=== PATIENT | male | born 1975 | race Caucasian/White ===

== ENCOUNTER 2021-12-19 09:01 | Outpatient (CLI) | payer BC, SELFPAY ==
[2021-12-19 13:42] LABS: Chloride* 107 mmol/L (96-114)
[2021-12-19 13:43] LABS: Potassium* 4.4 mmol/L (3.6-5.1); Sodium* 139 mmol/L (135-149)
[2021-12-19 13:46] LABS: Blood Urea Nitrogen* 24 mg/dL (5-24); Calcium* 9.3 mg/dL (8.4-10.6); Carbon Dioxide* 25 mmol/L (20-32); Cholesterol* 197 mg/dL (90-199); Creatinine* 1.1 mg/dL (0.5-1.5); Estimated Glomerular Filt Rate 84 ml/min; Glucose* 106 mg/dL (60-115); Triglycerides* 215 mg/dL (40-149)
[2021-12-19 13:47] LABS: HDL Cholesterol* 48 mg/dL (>=40); LDL Cholesterol Calculated 106 mg/dL (<100)
[2021-12-19 13:55] LABS: Vitamin D 25 Hydroxy* 49 ng/mL (30-80)
[2021-12-19 14:17] LABS: PSA Screen* 1.15 ng/mL (0.10-4.00)
== END 2021-12-19 09:02 | disposition home or self-care (01) ==
LOC: LKVLAB 09:01
PROVIDERS: PCP Emergency Medicine; Visit Provider Emergency Medicine
DX: Z00.00 Encounter for general adult medical examination without abnormal findings (principal); E55.9 Vitamin D deficiency, unspecified; E78.5 Hyperlipidemia, unspecified; I10 Essential (primary) hypertension; Z80.42 Family history of malignant neoplasm of prostate
CPT/HCPCS: 36415; 80048; 80061; 82306; 84153

== ENCOUNTER 2021-12-29 12:49 | Outpatient (CLI) | payer BC, SELFPAY ==
--- NOTE | 2021-12-29 13:00 | MR_ITS ---
[facility] [address] [facility] [address] Phone:?[phone] Fax:?[phone] Referring Physician Information: Charlotte Buckley M.D. [address] [place] [id number] Phone:?[phone] Fax:?[phone] Patient:?Marcus Jansen Lucía.Keven.B:?1975 Sex:?Male Phone:?[phone] [facility] MRN:?[id number] Exam Date:?12/29/2021 ? EXAM: MRI of the LEFT SHOULDER, without contrast CLINICAL: Male, 89 years old, with left shoulder pain and decreased range of motion since reported history of skiing injury in May 2021 when he fell and landed on his left arm, twisted posteriorly. Reported incomplete improvement with physical therapy. INDICATION: Evaluate for rotator cuff tear versus other shoulder derangement etiology. PRIOR SURGERY: None reported. PLAIN FILMS: None available. COMPARISONS: No prior MRIs available. TECHNICAL: Using a 1.5T MR scanner and a localizing shoulder surface coil: 3.0 mm?coronal obliques: PD, T2, STIR 3.0 mm?sagittal obliques: PD, T2 3.0 mm?axials: PD, T2 SEDATION: None. CONTRAST: None. IMPRESSION: 1. Expected degeneration and irregularity of the anterior labrum as well as linear tear of the superior labrum at and posterior to the biceps anchor. 2. MR appearance borderline abnormal for adhesive capsulitis which may be further clinically correlated/excluded. 3. No rotator cuff tear or micheline tendinopathy. 4. No biceps tendon pathology. 5. No convincing glenohumeral chondromalacia/osteoarthritis 6. No pathologic glenohumeral joint effusion. FINDINGS: Glenohumeral joint: Effusion/cyst: Physiologic effusion. No paralabral ganglion cyst. Articular cartilage: Humeral head: No osteochondral abnormalities. Glenoid: No osteochondral abnormalities. Loose bodies: No demonstrable loose bodies. Inferior glenohumeral ligament/axillary recess: Mild thickening of the folds of the axillary recess and inferior glenohumeral ligament complex appears borderline abnormal for that associated with adhesive capsulitis. Labrum: Some degeneration and deformity/irregularity of the anterior labrum. Also expected superior labrum tear at and posterior to biceps anchor. The posterior labrum is intact. Bones: Proximal humerus: Slight cortical irregularity and small subchondral cyst of the posterior humeral sulcus. The proximal humerus is otherwise intact. No humeral Hill-Sachs or reverse Hill- Sachs lesion/impaction or contusion. Glenoid: No fracture or marrow edema/pathology. No osseous Bankart lesion. Coracoacromial arch: Acromion morphology: Type I acromion without defined subacromial spur/enthesophyte. No mesoacromion or preacromion. Acromiohumeral space: Within normal limits. Coracohumeral space: Widely patent. Acromioclavicular joint: Joint: No acute injury, arthropathy, or inferior hypertrophy. Ligaments: Coracoclavicular ligaments are intact. Bursae: Subacromial-subdeltoid: No convincing subacromial bursal thickening/bursitis. Subcoracoid: No convincing subcoracoid bursal thickening/bursitis. Rotator cuff and muscles/tendons: Supraspinatus: No tendinopathy, tear or atrophy. Infraspinatus: No tendinopathy, tear or atrophy. Teres minor: No tendinopathy, tear or atrophy. Subscapularis: No tendinopathy, tear or atrophy. Deltoid: No strain or atrophy. Biceps tendon, long head: The long head of the biceps tendon is present within the bicipital groove. Intra-articular and extra-articular segments are intact without tendinopathy or displacement. Axilla: No axillary masses or abnormally enlarged lymphadenopathy. [facility] Electronically signed on 01/01/2022 8:01:00 AM by John Noriega M.D.
== END 2021-12-29 12:50 | disposition home or self-care (01) ==
LOC: MRI 12:50
PROVIDERS: PCP Emergency Medicine; Visit Provider Emergency Medicine
DX: M25.512 Pain in left shoulder (principal)
CPT/HCPCS: 73221

== ENCOUNTER 2022-02-02 06:22 | Outpatient (CLI) | payer BC, SELFPAY | END 2022-02-02 06:23 | disposition home or self-care (01) | PROVIDERS: PCP Emergency Medicine; Visit Provider Internal Medicine | DX: Z86.010 Personal history of colon polyps (principal); K63.89 Other specified diseases of intestine; K57.30 Diverticulosis of large intestine without perforation or abscess without bleeding | CPT/HCPCS: 45380; 88305; J2250; J3010 ==

== ENCOUNTER 2023-02-26 09:19 | Outpatient (CLI) | payer BC, SELFPAY | END 2023-02-26 09:20 | disposition home or self-care (01) | LOC: NFLDREF 02-27 11:53 | PROVIDERS: PCP Emergency Medicine; Referring Provider Emergency Medicine; Visit Provider Emergency Medicine | DX: Z00.00 Encounter for general adult medical examination without abnormal findings (principal); E55.9 Vitamin D deficiency, unspecified; E78.5 Hyperlipidemia, unspecified; R73.01 Impaired fasting glucose; Z80.42 Family history of malignant neoplasm of prostate | CPT/HCPCS: 80053; 80061; 82306; 84153 ==

== ENCOUNTER 2024-01-29 08:53 | Outpatient (CLI) | payer OTHER, BC, SELFPAY | END 2024-01-29 08:54 | disposition home or self-care (01) | LOC: NFLDREF 02-02 12:17 | PROVIDERS: PCP Emergency Medicine; Referring Provider Emergency Medicine; Visit Provider Emergency Medicine | DX: E78.2 Mixed hyperlipidemia (principal); R73.03 Prediabetes; Z80.42 Family history of malignant neoplasm of prostate; Z12.5 Encounter for screening for malignant neoplasm of prostate | CPT/HCPCS: 80048; 80061; G0103 ==

== ENCOUNTER 2024-02-03 10:31 | Outpatient (CLI) | payer OTHER, BC, SELFPAY ==
--- NOTE | 2024-02-03 10:45 | CRLHL7_ITS ---
For Patients: As a result of the Century Cures Act, medical imaging exams and procedure reports are released immediately into your electronic medical record. You may view this report before your referring provider. If you have questions, please contact your health care provider. Indication: palpable lump Technique: Grayscale and color Doppler ultrasound of the soft tissues performed above the right ankle corresponding to the area of concern Comparison: None Findings: Small hypoechoic nonvascular structure is present within the posterior epidermal layer measuring 1 x 1 x 2 millimeters. No distal acoustic enhancement or shadowing. No drainable fluid collection. Impression: Nonspecific hypoechoic focus located within the epidermal layer with a possible tract extending toward the skin surface measuring 2 millimeters. Dictated by Moreno Toribio MD @ 02/03/2024 2:50:35 PM (Electronically Signed)
== END 2024-02-03 10:32 | disposition home or self-care (01) ==
LOC: US 10:32
PROVIDERS: PCP Emergency Medicine; Visit Provider Emergency Medicine
DX: R22.41 Localized swelling, mass and lump, right lower limb (principal)
CPT/HCPCS: 76882

== ENCOUNTER 2024-03-05 12:49 | Outpatient (CLI) | payer OTHER, BC, SELFPAY ==
--- NOTE | 2024-03-05 13:00 | CRLHL7_ITS ---
For Patients: As a result of the Century Cures Act, medical imaging exams and procedure reports are released immediately into your electronic medical record. You may view this report before your referring provider. If you have questions, please contact your health care provider. INDICATION: Localized swelling and mass lower leg. COMPARISON: None. TECHNIQUE: Axial, coronal and sagittal T1 and STIR sequences left tibia and fibula. FINDINGS: MRI marker at the lateral distal calf. The underlying peroneal muscles are normal. Fibula is normal. No muscle herniation. No solid mass or fluid collection. No stress injury of the tibia. Normal marrow signal. IMPRESSION: No discrete abnormality at the site of clinical concern. No significant acute or chronic finding. Dictated by Patel Bosch MD @ 03/06/2024 9:59:39 AM (Electronically Signed)
== END 2024-03-05 12:50 | disposition home or self-care (01) ==
LOC: MRI 12:49
PROVIDERS: PCP Emergency Medicine; Visit Provider Emergency Medicine
DX: R22.42 Localized swelling, mass and lump, left lower limb (principal)
CPT/HCPCS: 73718